=== PATIENT | male | born 1985 | race Two or more races ===

== ENCOUNTER 2023-09-07 18:05 | Emergency (ER) | payer BC, OTHER ==
[~2023-09-07] VITALS: Ht 175.3 cm; Wt 137.1 kg
[2023-09-07 18:31] VITALS: BP 127/94; PULSE 66; RESP 17; TEMP 98.3
[2023-09-07] MEDS ORDERED: CYCL-839 PO (20:42)
[2023-09-07 21:06] VITALS: O2SAT 98
[2023-09-07] MEDS: KETOROLAC TROMETH 60MG/2ML VIAL IM ONE (21:12)
== END 2023-09-07 21:21 | disposition home or self-care (01) ==
LOC: ER 18:05
DX: S39.012A Strain of muscle, fascia and tendon of lower back, initial encounter (principal)
CPT/HCPCS: 96372; 99283; J1885